=== PATIENT | female | born 2000 | race Caucasian/White ===

== ENCOUNTER 2025-02-28 14:39 | Emergency (ER) | payer BC, OTHER ==
[2025-02-28 14:57] VITALS: BP 125/72; PULSE 101; RESP 18; TEMP 98.6; BMI 32.5
== END 2025-02-28 16:16 | disposition home or self-care (01) ==
LOC: FER 14:39
DX: R00.2 Palpitations (principal)
CPT/HCPCS: 93005; 99283-25